=== PATIENT | male | born 1955 | race Caucasian/White ===

== ENCOUNTER 2022-02-26 17:49 | Inpatient (IN) | payer OTHER ==
[2022-02-26 19:30] VITALS: BMI 30.4
[2022-02-26] MEDS ORDERED: MAG HYDROX/AL HYDROX/SIMETH 30 ML UNIT-DOSE CUP PO PRN (20:43)
[2022-02-26] MEDS ORDERED: P-EPHED 60MG/TRIPROLIDI 2.5MG TABLET PO PRN (20:43)
[2022-02-26] MEDS ORDERED: MAGNESIUM CITRATE 300 ML BOTTLE PO PRN (20:43)
[2022-02-26] MEDS ORDERED: NICOTINE POLACRILEX 2 MG GUM BC PRN (20:43)
[2022-02-26] MEDS ORDERED: IBUPROFEN 400 MG TABLET (FP) PO PRN (20:43)
[2022-02-26] MEDS ORDERED: hydrOXYzine PAMOATE 25 MG CAPSULE (FP) PO PRN (20:43)
[2022-02-26] MEDS ORDERED: LOPERAMIDE HCL 2 MG CAPSULE PO PRN (20:43)
[2022-02-26] MEDS ORDERED: ACETAMINOPHEN 325 MG TABLET (FP) PO PRN (20:43)
[2022-02-26] MEDS ORDERED: guaiFENesin 200 MG/10 ML 10 ML UNIT-DOSE CUPS PO PRN (20:43)
[2022-02-26] MEDS ORDERED: MAGNESIUM HYDROX 2400MG/30ML ORAL SUSPENSION 30 ML CUP PO PRN (20:43)
[2022-02-26] MEDS ORDERED: MELATONIN 5 MG TABLETS PO SCH (22:00)
[2022-02-26] MEDS ORDERED: BUPRENORPHINE/NALOXONE 8 MG/2 MG FILM PACKET SL ONE (22:44)
[2022-02-26] MEDS ORDERED: SENNOSIDES/DOCUSATE COMBO (SENNA PLUS) TABLET (UD) PO SCH (23:15)
[2022-02-27] MEDS: THIAMINE HCL 100 MG TABLET (FP) PO SCH ×2 (00:32→21:06)
[2022-02-27] MEDS ORDERED: BUPRENORPHINE/NALOXONE 4 MG/1 MG FILM PACKET ONE (00:32)
[2022-02-27] MEDS: LIDOCAINE PATCH REMOVAL MC SCH ×2 (02:38→21:07)
[2022-02-27] MEDS ORDERED: TUBERCULIN PPD 5 TU/0.1ML VIAL ID ONE (06:01)
[2022-02-27] MEDS: PRENATAL VITAMINS W/ FOLIC ACID TABLET (FP) PO SCH (10:03)
[2022-02-27] MEDS: amLODIPine BESYLATE 10 MG TABLET (FP) PO SCH (10:03)
[2022-02-27] MEDS: BUPRENORPHINE/NALOXONE 8 MG/2 MG FILM PACKET SL SCH (10:04)
[2022-02-27] MEDS: LOSARTAN POTASSIUM 25 MG TABLET PO SCH (10:38)
[2022-02-27] MEDS: FOLIC ACID 1 MG TABLET (FP) PO SCH (10:38)
[2022-02-27] MEDS: CHLORTHALIDONE 25 MG TABLET PO SCH (10:38)
[2022-02-27] MEDS: LIDOCAINE 5% TOPICAL PATCH TP SCH (10:39)
[2022-02-27 13:43] LABS: HEMATOCRIT 34.8 % (35.4-49); HEMOGLOBIN 11.6 GM/dL (11.7-16.9); MCH 30.5 pg (25.7-33.7); MCHC 33.4 g/dl (32.0-35.9); MEAN CELL VOLUME 91.5 fl (80-96); MEAN PLT VOLUME 9.2 fl (7.5-11.1); PLATELET COUNT 295 10^3/uL (134-434); RBC 3.81 M/mm3 (4.00-5.60); RDW 13.6 % (11.9-15.9); WHITE BLOOD COUNT 5.3 K/mm3 (4.0-10.0)
[2022-02-27 13:47] LABS: PH,URINE 5.5 (5.0-8.0); URINE APPEARANCE CLEAR; URINE BILIRUBIN NEGATIVE (NEGATIVE); URINE COLOR YELLOW; URINE GLUCOSE (UA) NEGATIVE (NEGATIVE); URINE KETONE NEGATIVE (NEGATIVE); URINE LEUK ESTERASE NEGATIVE (NEGATIVE); URINE NITRITE NEGATIVE (NEGATIVE); URINE PROTEIN NEGATIVE (NEGATIVE); URINE UROBILINOGEN 0.2 mg/dL (0.2-1.0)
[2022-02-27 14:10] LABS: CALCIUM 9.6 mg/dL (8.5-10.1)
[2022-02-27 14:11] LABS: ALBUMIN 3.8 g/dl (3.4-5.0); BLOOD UREA NITROGEN 20.3 mg/dL (7-18)
[2022-02-27 14:13] LABS: CREATININE 0.8 mg/dL (0.55-1.3)
[2022-02-27 14:17] LABS: TOT PROT 7.8 g/dl (6.4-8.2)
[2022-02-27 14:18] LABS: BILIRUBIN,TOTAL 0.3 mg/dL (0.2-1)
[2022-02-27] MEDS: MELATONIN 5 MG TABLETS PO SCH (21:06)
[2022-02-27] MEDS: MINERAL OIL/PETROLAT/WATER TOPICAL CREAM 113 GM JAR TP SCH (21:07)
[2022-02-28] MEDS: PRENATAL VITAMINS W/ FOLIC ACID TABLET (FP) PO SCH (10:42)
[2022-02-28] MEDS: BUPRENORPHINE/NALOXONE 8 MG/2 MG FILM PACKET SL SCH ×2 (10:42→21:02)
[2022-02-28] MEDS: LIDOCAINE 5% TOPICAL PATCH TP SCH (10:42)
[2022-02-28] MEDS: amLODIPine BESYLATE 10 MG TABLET (FP) PO SCH (10:42)
[2022-02-28] MEDS: FOLIC ACID 1 MG TABLET (FP) PO SCH (10:43)
[2022-02-28] MEDS: LOSARTAN POTASSIUM 25 MG TABLET PO SCH (13:52)
[2022-02-28] MEDS: CHLORTHALIDONE 25 MG TABLET PO SCH (13:53)
[2022-02-28] MEDS: NICOTINE 10 MG CARTRIDGE (INHALER) IH PRN (14:57)
[2022-02-28] MEDS: MINERAL OIL/PETROLAT/WATER TOPICAL CREAM 113 GM JAR TP SCH (15:40)
[2022-02-28] MEDS: MELATONIN 5 MG TABLETS PO SCH (21:01)
[2022-02-28] MEDS: THIAMINE HCL 100 MG TABLET (FP) PO SCH (21:01)
[2022-02-28] MEDS: METHYL SALICYLATE/MENTHOL OINT 30 GM TUBE TP SCH (21:03)
[2022-03-01] MEDS: NICOTINE 10 MG CARTRIDGE (INHALER) IH PRN (08:53)
[2022-03-01] MEDS: MINERAL OIL/PETROLAT/WATER TOPICAL CREAM 113 GM JAR TP SCH ×2 (10:08→10:10)
[2022-03-01] MEDS: LOSARTAN POTASSIUM 25 MG TABLET PO SCH ×2 (10:09→10:10)
[2022-03-01] MEDS: FOLIC ACID 1 MG TABLET (FP) PO SCH (10:10)
[2022-03-01] MEDS: PRENATAL VITAMINS W/ FOLIC ACID TABLET (FP) PO SCH (10:10)
[2022-03-01] MEDS: CHLORTHALIDONE 25 MG TABLET PO SCH (10:10)
[2022-03-01] MEDS: BUPRENORPHINE/NALOXONE 8 MG/2 MG FILM PACKET SL SCH ×2 (10:11→21:17)
[2022-03-01] MEDS: amLODIPine BESYLATE 10 MG TABLET (FP) PO SCH (10:11)
[2022-03-01] MEDS: LIDOCAINE 5% TOPICAL PATCH TP SCH (10:43)
[2022-03-01] MEDS: THIAMINE HCL 100 MG TABLET (FP) PO SCH (21:16)
[2022-03-01] MEDS: MELATONIN 5 MG TABLETS PO SCH (21:16)
[2022-03-01] MEDS: METHYL SALICYLATE/MENTHOL OINT 30 GM TUBE TP SCH (21:18)
[2022-03-02] MEDS: LIDOCAINE 5% TOPICAL PATCH TP SCH (10:10)
[2022-03-02] MEDS: BUPRENORPHINE/NALOXONE 8 MG/2 MG FILM PACKET SL SCH ×2 (10:10→21:01)
[2022-03-02] MEDS: FOLIC ACID 1 MG TABLET (FP) PO SCH (10:11)
[2022-03-02] MEDS: CHLORTHALIDONE 25 MG TABLET PO SCH (10:11)
[2022-03-02] MEDS: LOSARTAN POTASSIUM 25 MG TABLET PO SCH (10:11)
[2022-03-02] MEDS: amLODIPine BESYLATE 10 MG TABLET (FP) PO SCH (10:11)
[2022-03-02] MEDS: PRENATAL VITAMINS W/ FOLIC ACID TABLET (FP) PO SCH (10:11)
[2022-03-02] MEDS: MINERAL OIL/PETROLAT/WATER TOPICAL CREAM 113 GM JAR TP SCH (10:12)
[2022-03-02] MEDS: THIAMINE HCL 100 MG TABLET (FP) PO SCH (21:01)
[2022-03-02] MEDS: MELATONIN 5 MG TABLETS PO SCH (21:01)
[2022-03-02] MEDS: METHYL SALICYLATE/MENTHOL OINT 30 GM TUBE TP SCH (21:02)
[2022-03-02] MEDS ORDERED: INSULIN (LEVEMIR) 100 UNITS/ML UNITS SQ ONE (21:39)
[2022-03-03 07:35] VITALS: TEMP 96.9
[2022-03-03] MEDS: PRENATAL VITAMINS W/ FOLIC ACID TABLET (FP) PO SCH (09:03)
[2022-03-03] MEDS: amLODIPine BESYLATE 10 MG TABLET (FP) PO SCH (09:03)
[2022-03-03] MEDS: BUPRENORPHINE/NALOXONE 8 MG/2 MG FILM PACKET SL SCH (09:03)
[2022-03-03] MEDS: LIDOCAINE 5% TOPICAL PATCH TP SCH (09:04)
[2022-03-03] MEDS: LOSARTAN POTASSIUM 25 MG TABLET PO SCH (09:06)
[2022-03-03] MEDS: FOLIC ACID 1 MG TABLET (FP) PO SCH (09:06)
[2022-03-03] MEDS: CHLORTHALIDONE 25 MG TABLET PO SCH (09:06)
[2022-03-03] MEDS: MINERAL OIL/PETROLAT/WATER TOPICAL CREAM 113 GM JAR TP SCH (09:08)
[2022-03-03 09:45] VITALS: BP 153/70; PULSE 69
== END 2022-03-03 09:08 | disposition home or self-care (01) | DRG 772 ==
LOC: YASAS 17:49 → Y3E 02-27 01:07
PROVIDERS: ADMIT Allergy & Immunology; ATTEND Allergy & Immunology
PROC: HZ42ZZZ Group Counseling for Substance Abuse Treatment, Cognitive-Behavioral (ICD-10-PCS; principal; 2022-02-27)
DX: F11.20 Opioid dependence, uncomplicated (principal); F14.20 Cocaine dependence, uncomplicated; F12.20 Cannabis dependence, uncomplicated; F17.210 Nicotine dependence, cigarettes, uncomplicated; I10 Essential (primary) hypertension; K59.00 Constipation, unspecified; E78.5 Hyperlipidemia, unspecified; Z86.74 Personal history of sudden cardiac arrest; Z87.09 Personal history of other diseases of the respiratory system; Z96.651 Presence of right artificial knee joint; Z96.642 Presence of left artificial hip joint; Z95.818 Presence of other cardiac implants and grafts
CPT/HCPCS: 36415; 80053; 81003; 85027; 86593; 86780; 93005; 93010; C9803-CS; U0003; U0005